=== PATIENT | female | born 1955 | race African-American/Black ===

== ENCOUNTER 2024-03-19 15:37 | Inpatient (IN) | payer BC, MEDICAID ==
[~2024-03-19] VITALS: Ht 172.7 cm; Wt 90.7 kg
[2024-03-19 15:40] VITALS: BP 114/83; PULSE 150; RESP 30; TEMP 97.3; O2SAT 99
[2024-03-19] MEDS ORDERED: IPRATROPIUM 0.02% 0.5 MG/2.5 ML NEBU INH ONE (15:40)
[2024-03-19] MEDS ORDERED: ALBUTEROL 0.083% 2.5 MG/3 ML NEBU INH ONE (15:40)
[2024-03-19] MEDS ORDERED: DILTIAZEM 25 MG/5 ML VIAL IVP ONE (15:41)
[2024-03-19 15:46] VITALS: PULSE 113; RESP 17; O2SAT 97
[2024-03-19] MEDS: DILTIAZEM 25 MG/5 ML VIAL IVP ONE (15:56)
[2024-03-19] MEDS: NACL 0.9% 1,000 ML IV ONE (15:56)
[2024-03-19] MEDS: MAG SULF 2000 MG/WATER PREMIX 50 ML IV ONE (16:01)
[2024-03-19] MEDS: ALBUTEROL 0.083% 2.5 MG/3 ML NEBU INH ONE (16:11)
[2024-03-19] MEDS: IPRATROPIUM 0.02% 0.5 MG/2.5 ML NEBU INH ONE (16:11)
[2024-03-19] MEDS: methylPREDNISolone SS 125 MG/2 ML VIAL IVP ONE (16:11)
[2024-03-19 16:18] LABS: BASOPHILS % (AUTO) 0.9 % (0.0-2.0); EOSINOPHILS # (AUTO) 0.1 K/uL (0-0.4); EOSINOPHILS % (AUTO) 1.4 % (0.0-4.0); HEMATOCRIT 38.2 % (36-48); HEMOGLOBIN 12.6 g/dL (12.0-16.0); LYMPHOCYTES # (AUTO) 2.4 K/uL (2.5-16.5); LYMPHOCYTES % (AUTO) 50.8 % (20.5-51.1); MEAN CORPUSCULAR HEMOGLOBIN 25 pg (27-31); MEAN CORPUSCULAR HGB CONC 33 g/dL (33-37); MEAN CORPUSCULAR VOLUME 76.5 fL (80-94); MONOCYTES # (AUTO) 0.4 K/uL (0.8-1.0); MONOCYTES % (AUTO) 9.2 % (1.7-9.3); NEUTROPHILS # (AUTO) 1.8 K/uL (1.8-7.7); NEUTROPHILS % (AUTO) 37.7 % (42.2-75.2); PLATELET COUNT (AUTO) 195 K/uL (140-450); WHITE BLOOD COUNT (AUTO) 4.8 K/uL (4.8-10.8)
[2024-03-19 16:30] LABS: ANION GAP 16.1 (8-16); CALCIUM 8.7 mg/dL (8.5-10.1); CARBON DIOXIDE 23.8 mmol/L (21-32); CREATININE 1.9 mg/dL (0.6-1.3); POTASSIUM 3.9 mmol/L (3.5-5.1)
[2024-03-19 16:42] LABS: LACTIC ACID 1.1 mmol/L (0.4-2.0)
[2024-03-19 16:50] LABS: ALANINE AMINOTRANSFERASE 92 U/L (12-78); ALBUMIN 3.8 g/dL (3.4-5.0); ALKALINE PHOSPHATASE 100 U/L (50-136); ASPARTATE AMINOTRANSFERASE 63 U/L (15-37); BILIRUBIN,DIRECT 0.2 mg/dL (0.0-0.3); MAGNESIUM 1.8 mg/dL (1.8-2.4); PHOSPHORUS 5.4 mg/dL (2.5-4.9); TOTAL BILIRUBIN 0.6 mg/dL (0.0-1.0); TOTAL PROTEIN, SERUM 7.3 g/dL (6.4-8.2)
[2024-03-19 17:00] LABS: FLU A ANTIGEN negative (NEGATIVE); FLU B ANTIGEN NEGATIVE (NEGATIVE)
[2024-03-19] MEDS ORDERED: METO25TE2 PO (17:27)
[2024-03-19] MEDS ORDERED: FOLI2000 PO (17:31)
[2024-03-19] MEDS ORDERED: ATOR20TA40 PO (17:31)
[2024-03-19] MEDS ORDERED: APIX5TAB PO (17:31)
[2024-03-19] MEDS ORDERED: PANT40EC PO (17:31)
[2024-03-19] MEDS ORDERED: CLON-865 PO (17:31)
[2024-03-19] MEDS ORDERED: SACU1TAB PO (17:31)
[2024-03-19] MEDS ORDERED: ASPI-1822 PO (17:31)
[2024-03-19] MEDS ORDERED: COLC-30 PO (17:32)
[2024-03-19] MEDS ORDERED: SPIMDI INH (17:32)
[2024-03-19] MEDS ORDERED: BUDE10.32 IH (17:32)
[2024-03-19] MEDS ORDERED: ALBU0.0912 IH (17:34)
[2024-03-19] MEDS ORDERED: ATI.5 PO (19:27)
[2024-03-19] MEDS ORDERED: cefTRIAXone 1,000 MG VIAL ONE (19:46)
[2024-03-19] MEDS: FUROSEMIDE 40 MG/4 ML VIAL IVP SCH (19:48)
[2024-03-19] MEDS: DILTIAZEM 30 MG TAB PO SCH (20:03)
[2024-03-19] MEDS: APIXABAN 2.5 MG TAB PO SCH (21:27)
[2024-03-19 22:00] VITALS: BP 133/98; PULSE 99; RESP 18; TEMP 97; O2SAT 100
[2024-03-19 22:31] VITALS: PULSE 120
[2024-03-19 22:59] VITALS: PULSE 120
[2024-03-19 23:02] VITALS: RESP 16
[2024-03-20] VITALS (10 sets, daily range): BP systolic 127–142; BP diastolic 82–107; PULSE 69–145; RESP 18–22; TEMP 96.6–97.4; O2SAT 97–100
[2024-03-20 07:15] LABS: BASOPHILS % (AUTO) 0.4 % (0.0-2.0); EOSINOPHILS % (AUTO) 0.1 % (0.0-4.0); HEMATOCRIT 38.8 % (36-48); LYMPHOCYTES # (AUTO) 0.5 K/uL (2.5-16.5); MEAN CORPUSCULAR HEMOGLOBIN 26 pg (27-31); MEAN CORPUSCULAR HGB CONC 33 g/dL (33-37); MONOCYTES % (AUTO) 1.8 % (1.7-9.3); NEUTROPHILS # (AUTO) 2.1 K/uL (1.8-7.7); NEUTROPHILS % (AUTO) 77.7 % (42.2-75.2); PLATELET COUNT (AUTO) 201 K/uL (140-450); RED BLOOD CELL COUNT(AUTO) 5.03 MIL/uL (4.20-5.40); RED CELL DISTRIBUTION WIDTH 15.2 % (11.6-13.7); WHITE BLOOD COUNT (AUTO) 2.7 K/uL (4.8-10.8)
[2024-03-20 07:31] LABS: ALBUMIN 3.8 g/dL (3.4-5.0); ANION GAP 18.7 (8-16); CALCIUM 8.7 mg/dL (8.5-10.1); CARBON DIOXIDE 22.5 mmol/L (21-32); CREATININE 1.9 mg/dL (0.6-1.3); MAGNESIUM 1.8 mg/dL (1.8-2.4); POTASSIUM 4.2 mmol/L (3.5-5.1); TOTAL BILIRUBIN 0.4 mg/dL (0.0-1.0); TOTAL PROTEIN, SERUM 7.7 g/dL (6.4-8.2)
[2024-03-20] MEDS: ASPIRIN 81 MG TAB.CHEW PO SCH (09:11)
[2024-03-20] MEDS: PANTOPRAZOLE 40 MG TABEC PO SCH (09:11)
[2024-03-20] MEDS: ATORVASTATIN 20 MG TAB PO SCH (09:11)
[2024-03-20] MEDS: DOCUSATE SODIUM 100 MG GELCAP PO SCH (09:13)
[2024-03-20] MEDS: LORazepam 1 MG TAB PO PRN (10:25)
[2024-03-20] MEDS: ACETAMINOPHEN 325 MG TAB PO PRN (10:25)
[2024-03-20] MEDS: FUROSEMIDE 40 MG/4 ML VIAL IVP SCH ×2 (16:10→20:09)
[2024-03-20] MEDS: DIGOXIN 0.25 MG/ML AMP IV SCH ×2 (16:11→21:35)
[2024-03-20] MEDS: METOPROLOL 25 MG TAB PO SCH ×2 (16:11→20:09)
[2024-03-20] MEDS: ALBUTEROL SULFATE/IPRATROPIU 3 ML SOL IH ONE (20:49)
[2024-03-21] VITALS (15 sets, daily range): BP systolic 115–160; BP diastolic 73–111; PULSE 57–136; RESP 18–22; TEMP 96.6–97.6; O2SAT 95–100
[2024-03-21] MEDS: DIGOXIN 0.25 MG/ML AMP IV SCH (03:34)
[2024-03-21] MEDS: ALBUTEROL SULFATE/IPRATROPIU 3 ML SOL IH PRN (04:55)
[2024-03-21 06:40] LABS: BASOPHILS % (AUTO) 0.2 % (0.0-2.0); EOSINOPHILS % (AUTO) 0.1 % (0.0-4.0); HEMATOCRIT 39.7 % (36-48); HEMOGLOBIN 13.3 g/dL (12.0-16.0); LYMPHOCYTES # (AUTO) 1.8 K/uL (2.5-16.5); LYMPHOCYTES % (AUTO) 20.1 % (20.5-51.1); MEAN CORPUSCULAR HEMOGLOBIN 26 pg (27-31); MEAN CORPUSCULAR HGB CONC 33 g/dL (33-37); MEAN CORPUSCULAR VOLUME 76.5 fL (80-94); MONOCYTES # (AUTO) 0.5 K/uL (0.8-1.0); MONOCYTES % (AUTO) 6.2 % (1.7-9.3); NEUTROPHILS # (AUTO) 6.4 K/uL (1.8-7.7); NEUTROPHILS % (AUTO) 73.4 % (42.2-75.2); PLATELET COUNT (AUTO) 202 K/uL (140-450); RED BLOOD CELL COUNT(AUTO) 5.19 MIL/uL (4.20-5.40); RED CELL DISTRIBUTION WIDTH 15.1 % (11.6-13.7); WHITE BLOOD COUNT (AUTO) 8.8 K/uL (4.8-10.8)
[2024-03-21 06:56] LABS: ANION GAP 14.2 (8-16); CALCIUM 8.6 mg/dL (8.5-10.1); CARBON DIOXIDE 27.9 mmol/L (21-32); CREATININE 1.8 mg/dL (0.6-1.3); MAGNESIUM 1.9 mg/dL (1.8-2.4); POTASSIUM 4.1 mmol/L (3.5-5.1); TOTAL BILIRUBIN 0.3 mg/dL (0.0-1.0); TOTAL PROTEIN, SERUM 7.8 g/dL (6.4-8.2)
[2024-03-21] MEDS: ALBUTEROL SULFATE/IPRATROPIU 3 ML SOL IH SCH (07:13)
[2024-03-21] MEDS: predniSONE 20 MG TAB PO SCH (08:39)
[2024-03-21] MEDS: DIGOXIN 0.25 MG TAB PO SCH (14:30)
[2024-03-21] MEDS: METOPROLOL 50 MG TAB PO SCH ×2 (14:30→20:33)
[2024-03-21] MEDS: ZOLPIDEM 5 MG TAB PO PRN (20:33)
[2024-03-22] VITALS (12 sets, daily range): BP systolic 126–145; BP diastolic 88–105; PULSE 68–101; RESP 16–23; TEMP 97–97.8; O2SAT 93–99
[2024-03-22 07:19] LABS: EOSINOPHILS % (AUTO) 0.1 % (0.0-4.0); HEMATOCRIT 43.5 % (36-48); HEMOGLOBIN 14.4 g/dL (12.0-16.0); LYMPHOCYTES % (AUTO) 19.4 % (20.5-51.1); MEAN CORPUSCULAR HEMOGLOBIN 26 pg (27-31); MEAN CORPUSCULAR HGB CONC 33 g/dL (33-37); MEAN CORPUSCULAR VOLUME 77.6 fL (80-94); MONOCYTES # (AUTO) 0.6 K/uL (0.8-1.0); MONOCYTES % (AUTO) 6.3 % (1.7-9.3); NEUTROPHILS # (AUTO) 7.5 K/uL (1.8-7.7); NEUTROPHILS % (AUTO) 74.2 % (42.2-75.2); PLATELET COUNT (AUTO) 254 K/uL (140-450); RED BLOOD CELL COUNT(AUTO) 5.61 MIL/uL (4.20-5.40); RED CELL DISTRIBUTION WIDTH 15.3 % (11.6-13.7); WHITE BLOOD COUNT (AUTO) 10.1 K/uL (4.8-10.8)
[2024-03-22 07:42] LABS: ANION GAP 14.8 (8-16); CALCIUM 8.7 mg/dL (8.5-10.1); CARBON DIOXIDE 27.6 mmol/L (21-32); POTASSIUM 4.4 mmol/L (3.5-5.1); TOTAL BILIRUBIN 0.2 mg/dL (0.0-1.0); TOTAL PROTEIN, SERUM 8.1 g/dL (6.4-8.2)
[2024-03-22] MEDS: DIGOXIN 0.25 MG TAB PO SCH (09:03)
[2024-03-22] MEDS: METOPROLOL 50 MG TAB PO SCH ×2 (15:37→20:38)
[2024-03-22] MEDS: FUROSEMIDE 40 MG TAB PO SCH (17:37)
[2024-03-23] VITALS (7 sets, daily range): BP systolic 124–130; BP diastolic 74–93; PULSE 76–88; RESP 18–24; TEMP 97.3–97.8; O2SAT 96–99
[2024-03-23 06:38] LABS: BASOPHILS # (AUTO) 0.2 K/uL (0.00-0.22); BASOPHILS % (AUTO) 2.3 % (0.0-2.0); EOSINOPHILS % (AUTO) 0.1 % (0.0-4.0); HEMATOCRIT 42.4 % (36-48); LYMPHOCYTES # (AUTO) 2.2 K/uL (2.5-16.5); LYMPHOCYTES % (AUTO) 24.3 % (20.5-51.1); MEAN CORPUSCULAR HEMOGLOBIN 26 pg (27-31); MEAN CORPUSCULAR HGB CONC 33 g/dL (33-37); MEAN CORPUSCULAR VOLUME 77.2 fL (80-94); MONOCYTES # (AUTO) 0.6 K/uL (0.8-1.0); MONOCYTES % (AUTO) 6.2 % (1.7-9.3); NEUTROPHILS # (AUTO) 6.1 K/uL (1.8-7.7); NEUTROPHILS % (AUTO) 67.1 % (42.2-75.2); PLATELET COUNT (AUTO) 226 K/uL (140-450); WHITE BLOOD COUNT (AUTO) 9.2 K/uL (4.8-10.8)
[2024-03-23 06:53] LABS: ALBUMIN 3.7 g/dL (3.4-5.0); ANION GAP 14.1 (8-16); CALCIUM 8.4 mg/dL (8.5-10.1); CARBON DIOXIDE 27.9 mmol/L (21-32); CREATININE 1.9 mg/dL (0.6-1.3); MAGNESIUM 1.9 mg/dL (1.8-2.4); TOTAL BILIRUBIN 0.3 mg/dL (0.0-1.0); TOTAL PROTEIN, SERUM 7.4 g/dL (6.4-8.2)
[2024-03-23] MEDS ORDERED: METO50TA99 PO (14:28)
[2024-03-23] MEDS ORDERED: DOXY-690 PO (14:28)
[2024-03-23] MEDS ORDERED: DIGO-81 PO (14:28)
[2024-03-23] MEDS ORDERED: FURO40TA9 PO (14:28)
== END 2024-03-23 18:20 | disposition home health service (06) | DRG 280 ==
LOC: MED 15:37 → MTU 19:22
PROVIDERS: ADMIT Hospitalist; ATTEND Hospitalist
DX: I13.0 Hypertensive heart and chronic kidney disease with heart failure and stage 1 through stage 4 chronic kidney disease, or unspecified chronic kidney disease (principal); I50.33 Acute on chronic diastolic (congestive) heart failure; I21.A1 Myocardial infarction type 2; J44.1 Chronic obstructive pulmonary disease with (acute) exacerbation; N17.9 Acute kidney failure, unspecified; I48.91 Unspecified atrial fibrillation; N18.9 Chronic kidney disease, unspecified; I34.0 Nonrheumatic mitral (valve) insufficiency; Z20.822 Contact with and (suspected) exposure to COVID-19; E78.5 Hyperlipidemia, unspecified; Z79.899 Other long term (current) drug therapy; Z86.718 Personal history of other venous thrombosis and embolism
CPT/HCPCS: 36415; 71045; 76770; 80048; 80053; 80076; 83605; 83735; 83880; 84100; 84484; 85025; 87040; 87081; 93005; 94640; 96365; 96375; 97112; 97116; 99291; J0696; J1160; J1940; J2919; J3475; J3490; J7060; J7512; J7613; J7644; Q0092

== ENCOUNTER 2024-03-25 00:40 | Emergency (ER) | payer BC, MEDICAID ==
[~2024-03-25] VITALS: Ht 170.2 cm; Wt 88.0 kg
[2024-03-25 00:40] VITALS: BP 121/99; PULSE 78; RESP 17; TEMP 97.8; O2SAT 100
[~2024-03-25 00:40] MED LIST: ALBU0.0912 IH; APIX5TAB PO; ASPI-1822 PO; ATI.5 PO; ATOR20TA40 PO; BUDE10.32 IH; CLON-865 PO; COLC-30 PO; DIGO-81 PO; DOXY-690 PO; FOLI2000 PO; FURO40TA9 PO; METO50TA99 PO; PANT40EC PO; SACU1TAB PO; SPIMDI INH
[2024-03-25 01:35] LABS: BASOPHILS # (AUTO) 0.1 K/uL (0.00-0.22); EOSINOPHILS # (AUTO) 0.1 K/uL (0-0.4); EOSINOPHILS % (AUTO) 1.9 % (0.0-4.0); HEMATOCRIT 40.2 % (36-48); HEMOGLOBIN 13.5 g/dL (12.0-16.0); LYMPHOCYTES # (AUTO) 3.7 K/uL (2.5-16.5); LYMPHOCYTES % (AUTO) 50.6 % (20.5-51.1); MEAN CORPUSCULAR HEMOGLOBIN 26 pg (27-31); MEAN CORPUSCULAR HGB CONC 34 g/dL (33-37); MEAN CORPUSCULAR VOLUME 77.6 fL (80-94); MONOCYTES # (AUTO) 0.6 K/uL (0.8-1.0); MONOCYTES % (AUTO) 8.7 % (1.7-9.3); NEUTROPHILS # (AUTO) 2.7 K/uL (1.8-7.7); NEUTROPHILS % (AUTO) 36.8 % (42.2-75.2); PLATELET COUNT (AUTO) 215 K/uL (140-450); RED BLOOD CELL COUNT(AUTO) 5.18 MIL/uL (4.20-5.40); RED CELL DISTRIBUTION WIDTH 14.8 % (11.6-13.7); WHITE BLOOD COUNT (AUTO) 7.2 K/uL (4.8-10.8)
[2024-03-25] MEDS: MORPHINE SULFATE 4 MG/ML SYR IVP ONE (01:51)
[2024-03-25 01:53] LABS: ANION GAP 11.4 (8-16); CALCIUM 8.6 mg/dL (8.5-10.1); CARBON DIOXIDE 29.3 mmol/L (21-32); CREATININE 2.2 mg/dL (0.6-1.3); POTASSIUM 3.7 mmol/L (3.5-5.1)
[2024-03-25] MEDS: ACETAMINOPHEN EXTRA STRENGTH 500 MG TAB PO ONE (02:00)
[2024-03-25 02:01] LABS: ALANINE AMINOTRANSFERASE 50 U/L (12-78); ALBUMIN 3.5 g/dL (3.4-5.0); ALKALINE PHOSPHATASE 95 U/L (50-136); ASPARTATE AMINOTRANSFERASE 25 U/L (15-37); BILIRUBIN,DIRECT 0.1 mg/dL (0.0-0.3); TOTAL BILIRUBIN 0.3 mg/dL (0.0-1.0); TOTAL PROTEIN, SERUM 6.8 g/dL (6.4-8.2)
[2024-03-25 04:28] VITALS: BP 107/81; PULSE 67; RESP 13; TEMP 97.8; O2SAT 97
== END 2024-03-25 04:28 | disposition home or self-care (01) ==
LOC: MED 00:40
DX: I48.91 Unspecified atrial fibrillation (principal); J44.9 Chronic obstructive pulmonary disease, unspecified; I10 Essential (primary) hypertension; Z79.1 Long term (current) use of non-steroidal anti-inflammatories (NSAID); Z79.2 Long term (current) use of antibiotics; Z79.82 Long term (current) use of aspirin; Z79.899 Other long term (current) drug therapy; Z91.030 Bee allergy status; Z88.6 Allergy status to analgesic agent; Z88.5 Allergy status to narcotic agent
CPT/HCPCS: 36415; 71045; 80048; 80076; 83880; 84484; 85025; 93005; 99285; Q0092; J2270